=== PATIENT | male | born 1990 | race African-American/Black ===

== ENCOUNTER 2021-09-17 11:22 | Day surgery (SDC) | payer OTHER ==
[~2021-09-17] VITALS: Ht 175.3 cm; Wt 75.3 kg
[2021-09-17 11:44] VITALS: BP 139/101; PULSE 64; TEMP 97.7
[2021-09-17] MEDS ORDERED: NORVASC 10MG10 MG PO (11:58)
[2021-09-17 14:35] VITALS: BP 115/63; PULSE 50; TEMP 97.1
--- NOTE | 2021-09-17 14:42 | NUR ---
1435 - PT arrives from procedure drowsy but oriented; PT ambulated from cart to chair 2:1 w/ RN. Montiors applied and VSS. PT denies pain and nausea. PT provided w/ Sprite and a warm muffin per request. PT oriented to room and call he, within reach. PT is resting in chair.
[2021-09-17 14:50] VITALS: BP 122/83; PULSE 51
[2021-09-17 15:05] VITALS: BP 128/79; PULSE 52
--- NOTE | 2021-09-17 15:20 | NUR ---
1450 - VSS. PT expressed desire to be discharged. Call he remains within reach if needed. PT has finished snack and drink 1505 - DR has spoken w/ PT. IV discontinued. Catheter tip intact and pressure bandage applied. NO redness or swelling noted. DC instructions and educational material reveiwed with the PT who verbalized understanding and signed the related paperwork. PT refused RN assistance changing into personal clothes; call he remains within reach if needed. 1520 - PT dismissed from [facility] via wheelchair to the PT entrence by Tari VARGAS. PT has personal belongings and DC packet in hand, and was transferred into the care of his friend Jason who is driving private car.
== END 2021-09-17 15:20 | disposition home or self-care (01) ==
LOC: SDCO 11:22
DX: K64.0 First degree hemorrhoids (principal)
CPT/HCPCS: J2704; J7120